=== PATIENT | male | born 1970 | race Caucasian/White ===

== ENCOUNTER → 2017-01-29 | Outpatient (CLI) | payer MEDICARE, OTHER ==
[~2017-01-29] MED LIST: ACTOS45 MG PO; CATAPRES 0.1MG0.1 MG PO; CITALOPRAM HBR40 MG PO; ETODOLAC ER400 MG PO; FEROSUL325 MG PO; FORTAMET1000 MG PO; JARDIANCE25 MG PO; LEVEMIR FL100 UNIT/1 SQ; LIPITOR80 MG PO; LISINOPRIL30 MG PO; LOPRESSOR50 MG PO; NOVOLOG FL100 UNIT/1 SQ; PANTOPRAZOLE SO40 MG PO; TRADJENTA5 MG PO; TRULICITY1.5 MG/0.5 SQ; VISTARIL 50 MG50 MG PO
== END ==
LOC: LAB 17:57
DX: Z01.812 Encounter for preprocedural laboratory examination (principal)
CPT/HCPCS: 36415; 82565; 84520

== ENCOUNTER 2020-08-20 16:17 | Inpatient (IN) | payer MEDICARE, OTHER ==
[~2020-08-20] VITALS: Ht 177.8 cm; Wt 120.7 kg
[~2020-08-20 16:17] MED LIST changes: +BACTROBAN OINT22 GM TOP; +CARDIZEM CD180 MG PO; +CARDURA4 MG PO; +CITALOPRAM HBR10 MG PO; -CITALOPRAM HBR40 MG PO; +CORDARONE 200M200 MG PO; +ELIQUIS2.5 MG PO; +ENULOSE10 GM/15 M PO; +FEOSOL325 MG PO; +FLEXERIL 10 MG10 MG PO; +GLUCOPHAGE1000 MG PO; +HYDRALAZINE HC100 MG PO; +HYZAAR 50-12.51 EACH PO; +JANUVIA100 MG PO; +LASIX20 MG PO; +LASIX80 MG PO; +LEVEMIR100 UNIT/1 SC; +LIPITOR TAB 2020 MG PO; +LISINOPRIL40 MG PO; +LOPRESSOR100 MG PO; +LYRICA200 MG PO; +NORVASC10 MG PO; +NOVOLOG 10100 UNITS1 INJ; -NOVOLOG FL100 UNIT/1 SQ; +NOVOLOG MI100 UNIT/1 SC; +NOVOLOG MI100 UNIT/2 SQ; +OMNICEF 300 MG300 MG PO; +PERMETHRIN60 GM TOP; +PHOSLO 667 MG667 MG PO; +PLAVIX 75 MG TA75 MG PO; +PROTONIX 40 MG40 M1 PO; +SILVADENE CREAM20 GM TOP; +TRULICITY1.5 MG/0.5 SC; +TYLENOL 325MG325 MG PO; +VISTARIL 25 MG25 MG PO; +VITAMIN D32000 UNI1 PO; +XALATAN OP SOL2.5 ML OP; +XELJANZ5 MG PO; +ZANTAC150 MG PO; +ZAROXOLYN/DIULO5 MG PO; +ZESTRIL40 MG PO; +[UNRECOGNIZED DRUG - OTHER] SC
[2020-08-20] MEDS ORDERED: TYLENOL325 MG PO (18:07)
[2020-08-20] MEDS ORDERED: LYRICA200 MG PO (18:09)
[2020-08-20] MEDS ORDERED: ZESTRIL40 MG PO (18:10)
[2020-08-20] MEDS ORDERED: LOPRESSOR100 MG PO (18:10)
[2020-08-20] MEDS ORDERED: PROTONIX40 MG PO (18:10)
[2020-08-20] MEDS ORDERED: ELIQUIS5 MG PO (18:17)
[2020-08-20] MEDS ORDERED: SERTRALINE HCL100 MG PO (18:17)
[2020-08-20] MEDS ORDERED: TRAZODONE HCL50 MG PO (18:17)
[2020-08-20] MEDS ORDERED: CALCIUM ACETAT667 M2 PO (18:18)
[2020-08-20] MEDS ORDERED: CARDURA 2MG TAB2 MG PO (18:18)
[2020-08-20] MEDS ORDERED: VITAMIN D21250 MCG PO (18:19)
[2020-08-20 18:41] LABS: HEMOGLOBIN 9.1 gm/dl (14.0-17.5); RED BLOOD COUNT 3.82 M/UL (4.20-5.50); WHITE BLOOD COUNT 13.5 K/UL (4.5-11.0)
[2020-08-20 18:49] LABS: BUN/CREATININE RATIO 10 (0-10)
[2020-08-21 03:02] LABS: HEMOGLOBIN 8.4 gm/dl (14.0-17.5); RED BLOOD COUNT 3.48 M/UL (4.20-5.50)
[2020-08-21 03:06] LABS: WHITE BLOOD COUNT 9.9 K/UL (4.5-11.0)
[2020-08-22 03:03] LABS: HEMOGLOBIN 8.8 gm/dl (14.0-17.5); RED BLOOD COUNT 3.73 M/UL (4.20-5.50); WHITE BLOOD COUNT 13.4 K/UL (4.5-11.0)
--- NOTE | 2020-08-22 20:00 | NUR ---
notified me. Advised me to increase patient's sodium bicarb drip rate to 125/hr.
[2020-08-23 04:21] LABS: HEMOGLOBIN 8.3 gm/dl (14.0-17.5); RED BLOOD COUNT 3.47 M/UL (4.20-5.50)
[2020-08-24 11:14] LABS: HBSAG SCREEN Negative (Negative)
[2020-08-24 16:14] LABS: A/G RATIO 0.7 (0.7-1.7); ALBUMIN 2.7 g/dL (2.9-4.4); ALPHA-1-GLOBULIN 0.4 g/dL (0.0-0.4); ALPHA-2-GLOBULIN 1.2 g/dL (0.4-1.0); BETA GLOBULIN 0.7 g/dL (0.7-1.3); GLOBULIN, TOTAL 4.3 g/dL (2.2-3.9); IMMUNOGLOBULIN A, QN, SERUM 350 mg/dL (90-386); IMMUNOGLOBULIN G, QN, SERUM 1412 mg/dL (603-1613); IMMUNOGLOBULIN M, QN, SERUM 65 mg/dL (20-172); M-SPIKE Not Observed g/dL (Not Observed)
[2020-08-25 03:00] LABS: HEMOGLOBIN 7.3 gm/dl (14.0-17.5)
[2020-08-25 03:06] LABS: RED BLOOD COUNT 3.02 M/UL (4.20-5.50); WHITE BLOOD COUNT 9.1 K/UL (4.5-11.0)
[2020-08-25 09:21] LABS: HEMOGLOBIN 7.8 gm/dl (14.0-17.5); RED BLOOD COUNT 3.18 M/UL (4.20-5.50)
[2020-08-25 17:09] LABS: M-SPIKE, % Not Observed % (Not Observed); PROTEIN,TOTAL,URINE 732.7 mg/dL (Not Estab.)
[2020-08-27 02:56] LABS: HEMOGLOBIN 7.1 gm/dl (14.0-17.5); RED BLOOD COUNT 3.02 M/UL (4.20-5.50); WHITE BLOOD COUNT 10.5 K/UL (4.5-11.0)
[2020-08-28 02:46] LABS: RED BLOOD COUNT 2.9 M/UL (4.20-5.50); WHITE BLOOD COUNT 9.4 K/UL (4.5-11.0)
[2020-08-28 02:50] LABS: HEMOGLOBIN 6.9 gm/dl (14.0-17.5)
--- NOTE | 2020-08-28 19:45 | NUR ---
SPOKE WITH DR GOODEN AT 1700 - STATED OK TO USE TRIALYSIS CATHETER FOR INFUSIONS/BLOOD TRANSFUSIONS - ENSURE LINE IS FLUSHED THOROUGHLY AFTER USE AND CAPPED OFF
[2020-08-29 04:32] LABS: HEMOGLOBIN 7.6 gm/dl (14.0-17.5); RED BLOOD COUNT 3.13 M/UL (4.20-5.50); WHITE BLOOD COUNT 9.4 K/UL (4.5-11.0)
[2020-08-30 02:24] LABS: HEMOGLOBIN 7.5 gm/dl (14.0-17.5); RED BLOOD COUNT 3.08 M/UL (4.20-5.50)
[2020-08-31 03:40] LABS: HEMOGLOBIN 7.2 gm/dl (14.0-17.5); RED BLOOD COUNT 2.96 M/UL (4.20-5.50); WHITE BLOOD COUNT 7.9 K/UL (4.5-11.0)
[2020-08-31 13:09] LABS: HBSAG SCREEN Negative (Negative); HEP A AB, IGM Negative (Negative); HEP B CORE AB, IGM Negative (Negative); HEP C VIRUS AB <0.1 (0.0-0.9)
[2020-09-01 02:35] LABS: HEMOGLOBIN 7.3 gm/dl (14.0-17.5); RED BLOOD COUNT 3.03 M/UL (4.20-5.50); WHITE BLOOD COUNT 9.8 K/UL (4.5-11.0)
[2020-09-02 02:30] LABS: RED BLOOD COUNT 2.76 M/UL (4.20-5.50); WHITE BLOOD COUNT 10.4 K/UL (4.5-11.0)
[2020-09-02 02:43] LABS: HEMOGLOBIN 6.7 gm/dl (14.0-17.5)
[2020-09-02 15:16] LABS: HEMOGLOBIN 8.4 gm/dl (14.0-17.5)
[2020-09-03 03:04] LABS: HEMOGLOBIN 8.6 gm/dl (14.0-17.5); RED BLOOD COUNT 3.46 M/UL (4.20-5.50); WHITE BLOOD COUNT 9.7 K/UL (4.5-11.0)
[2020-09-04 03:34] LABS: HEMOGLOBIN 8.4 gm/dl (14.0-17.5); RED BLOOD COUNT 3.41 M/UL (4.20-5.50); WHITE BLOOD COUNT 8.5 K/UL (4.5-11.0)
[2020-09-05 02:54] LABS: HEMOGLOBIN 8.7 gm/dl (14.0-17.5); WHITE BLOOD COUNT 7.7 K/UL (4.5-11.0)
[2020-09-05 04:35] LABS: BUN/CREATININE RATIO 10 (0-10)
[2020-09-06 03:27] LABS: HEMOGLOBIN 8.5 gm/dl (14.0-17.5); RED BLOOD COUNT 3.46 M/UL (4.20-5.50); WHITE BLOOD COUNT 7.2 K/UL (4.5-11.0)
[2020-09-07 04:51] LABS: HEMOGLOBIN 8.4 gm/dl (14.0-17.5); RED BLOOD COUNT 3.39 M/UL (4.20-5.50); WHITE BLOOD COUNT 6.7 K/UL (4.5-11.0)
[2020-09-08 04:23] LABS: HEMOGLOBIN 8.8 gm/dl (14.0-17.5); RED BLOOD COUNT 3.55 M/UL (4.20-5.50)
[2020-09-08 04:25] LABS: WHITE BLOOD COUNT 8.8 K/UL (4.5-11.0)
[2020-09-09 04:04] LABS: HEMOGLOBIN 8.6 gm/dl (14.0-17.5); RED BLOOD COUNT 3.49 M/UL (4.20-5.50); WHITE BLOOD COUNT 8.9 K/UL (4.5-11.0)
[2020-09-09] MEDS ORDERED: CARDIZEM 30MG T30 MG PO (15:42)
[2020-09-09] MEDS ORDERED: HYDRALAZINE HCL25 MG PO (15:42)
[2020-09-09] MEDS ORDERED: CATAPRES 0.1MG0.1 MG PO (15:42)
[2020-09-09] MEDS ORDERED: LEVEMIR100 UNIT/1 SC (15:51)
[2020-09-09] MEDS ORDERED: NOVOLOG MI100 UNIT/1 SC (15:51)
--- NOTE | 2020-09-09 16:45 | NUR ---
PT UP TO CHAIR WITH NURSING ASSISTANCE AND USE OF WALKER. PT O2 SAT 94% ON ROOM AIR WHILE UP AND SITTING IN CHAIR
--- NOTE | 2020-09-09 17:50 | NUR ---
ATTEMPTED TO CALL [facility] IN [place]. LEFT MESSAGE. PT BEING DC'D HOME. MARY JANE PIERSON, CASE MANAGEMENT, WILL ALSO FOLLOW UP WITH HOME HEALTH TUESDAY 09/12
== END 2020-09-09 18:23 | disposition home or self-care (01) | DRG 853 ==
LOC: CCU 17:51 → PROG CARE 17:51
PROVIDERS: Family Medicine; Internal Medicine; Internal Medicine Infectious Disease; Internal Medicine Nephrology; Internal Medicine Pulmonary Disease; Surgery; ADMIT Internal Medicine
PROC: B24BZZ4 Ultrasonography of Heart with Aorta, Transesophageal (ICD-10-PCS; 2020-08-23)
PROC: 02HV33Z Insertion of Infusion Device into Superior Vena Cava, Percutaneous Approach (ICD-10-PCS; 2020-08-23)
PROC: 5A1D70Z Performance of Urinary Filtration, Intermittent, Less than 6 Hours Per Day (ICD-10-PCS; 2020-08-25)
PROC: 30233N1 Transfusion of Nonautologous Red Blood Cells into Peripheral Vein, Percutaneous Approach (ICD-10-PCS; 2020-08-28)
PROC: 02H633Z Insertion of Infusion Device into Right Atrium, Percutaneous Approach (ICD-10-PCS; 2020-09-01)
PROC: 0JH63XZ Insertion of Tunneled Vascular Access Device into Chest Subcutaneous Tissue and Fascia, Percutaneous Approach (ICD-10-PCS; 2020-09-01)
PROC: 02HV33Z Insertion of Infusion Device into Superior Vena Cava, Percutaneous Approach (ICD-10-PCS; 2020-09-01)
PROC: 0FT44ZZ Resection of Gallbladder, Percutaneous Endoscopic Approach (ICD-10-PCS; principal; 2020-09-07 13:45)
DX: A41.9 Sepsis, unspecified organism (principal); N18.6 End stage renal disease; J96.01 Acute respiratory failure with hypoxia; K85.10 Biliary acute pancreatitis without necrosis or infection; Z20.822 Contact with and (suspected) exposure to COVID-19; J18.9 Pneumonia, unspecified organism; I21.A1 Myocardial infarction type 2; N17.9 Acute kidney failure, unspecified; I12.0 Hypertensive chronic kidney disease with stage 5 chronic kidney disease or end stage renal disease; N39.0 Urinary tract infection, site not specified; D62 Acute posthemorrhagic anemia; I48.20 Chronic atrial fibrillation, unspecified; E87.2 Acidosis; R18.8 Other ascites; E87.1 Hypo-osmolality and hyponatremia; E87.6 Hypokalemia; R65.20 Severe sepsis without septic shock; E11.65 Type 2 diabetes mellitus with hyperglycemia; I48.0 Paroxysmal atrial fibrillation; I16.0 Hypertensive urgency; F41.9 Anxiety disorder, unspecified; E78.5 Hyperlipidemia, unspecified; D63.1 Anemia in chronic kidney disease; E11.51 Type 2 diabetes mellitus with diabetic peripheral angiopathy without gangrene; E11.22 Type 2 diabetes mellitus with diabetic chronic kidney disease; E66.01 Morbid (severe) obesity due to excess calories; F17.210 Nicotine dependence, cigarettes, uncomplicated; Z99.2 Dependence on renal dialysis; Z79.4 Long term (current) use of insulin; Z79.01 Long term (current) use of anticoagulants; Z86.14 Personal history of Methicillin resistant Staphylococcus aureus infection; Z83.3 Family history of diabetes mellitus; Z68.38 Body mass index [BMI] 38.0-38.9, adult; Z87.440 Personal history of urinary (tract) infections
CPT/HCPCS: ECHO; 36415; 36430; 36600; 71045; 71250; 76705; 77001; 80048; 80053; 80061; 80074; 82150; 82436; 82550; 82553; 82570; 82784; 82803; 82962; 82977; 83036; 83540; 83550; 83605; 83615; 83690; 83735; 83880; 83883; 84100; 84133; 84155; 84156; 84165; 84166; 84300; 84484; 85007; 85014; 85018; 85025; 85027; 85610; 85730; 86140; 86334; 86335; 86850; 86900; 86901; 86920; 87340; 90937; 93005; 93306; 94640; 94660; 94667; 94668; 94760; 97161; 97164; 97166; C1752; C9113; J0360; J0690; J1170; J1335; J1642; J1644; J1756; J1940; J2250; J2270; J2405; J2543; J2550; J2704; J3010; J3370; J7030; J7040; J7050; J7120; P9016; P9047; U0002

== ENCOUNTER 2021-09-01 16:24 | Emergency (ER) | payer MEDICARE, OTHER ==
[~2021-09-01 16:24] MED LIST changes: +CALCIUM ACETAT667 M2 PO; +CARDIZEM 30MG T30 MG PO; +CARDURA 2MG TAB2 MG PO; +ELIQUIS5 MG PO; +HYDRALAZINE HCL25 MG PO; +PROTONIX40 MG PO; +SERTRALINE HCL100 MG PO; +TRAZODONE HCL50 MG PO; +TYLENOL325 MG PO; +VITAMIN D21250 MCG PO
== END 2021-09-01 17:00 | disposition left against medical advice (07) ==
LOC: ER1 16:24
DX: Z53.21 Procedure and treatment not carried out due to patient leaving prior to being seen by health care provider (principal)

== ENCOUNTER 2022-01-26 20:50 | Emergency (ER) | payer MEDICARE, OTHER ==
[2022-01-27 01:56] LABS: HEMOGLOBIN 9.9 gm/dl (14.0-17.5); RED BLOOD COUNT 4.16 M/UL (4.20-5.50); WHITE BLOOD COUNT 14.1 K/UL (4.5-11.0)
[2022-01-27] MEDS ORDERED: ZOFRAN ODT 4 MG4 MG PO (04:55)
[2022-01-27] MEDS ORDERED: CEPHALEXIN500 MG PO (04:55)
== END 2022-01-27 05:08 | disposition home or self-care (01) ==
LOC: ER1 20:50
DX: D64.9 Anemia, unspecified (principal); R31.9 Hematuria, unspecified; R11.2 Nausea with vomiting, unspecified; R82.81 Pyuria; N18.9 Chronic kidney disease, unspecified; Z79.01 Long term (current) use of anticoagulants; F17.200 Nicotine dependence, unspecified, uncomplicated; Z20.822 Contact with and (suspected) exposure to COVID-19
CPT/HCPCS: 71045; 80053; 81001; 82962; 83605; 85025; 87086; 96374; 99284; J2405; U0002